=== PATIENT | female | born 1965 | race Caucasian/White ===

== ENCOUNTER → 2016-12-15 | Outpatient (CLI) | payer BC ==
[~2016-12-15] MED LIST: B-COTAB18; CALCTAB5 PO; CHOL100010 PO; CODCAP4; MISCCAP80; MULT-506 PO
--- NOTE | 2016-12-15 14:57 | MAMMOGRAPHY REPORT ---
BILATERAL DIGITAL SCREENING MAMMOGRAM TOMOSYNTHESIS WITH CAD: 12/15/2016 CLINICAL HISTORY: Routine screening. Patient has no complaints. TECHNIQUE: Breast tomosynthesis in addition to standard 2D mammography was performed. Current study was also evaluated with a Computer Aided Detection (CAD) system. COMPARISON: Comparison is made to exams dated: 12/12/2015 mammogram, 11/09/2014 mammogram, 11/08/2013 mammogram, 10/26/2012 mammogram, 10/21/2011 mammogram, and 10/16/2010 mammogram - [facility]. BREAST COMPOSITION: The tissue of both breasts is extremely dense, which lowers the sensitivity of m ammography. FINDINGS: The parenchymal pattern is unchanged. No developing mass, architectural distortion or clus ter of suspicious microcalcifications is seen in either breast. IMPRESSION: ACR BI-RADS CATEGORY 2: BENIGN There is no mammographic evidence of malignancy. A 1 year screening mammogram is recommended. The pa tient will receive written notification of the results. Approximately 10% of breast cancers are not detected with mammography. A negative mammographic report should not delay biopsy if a clinically suggestive mass is present. Alisa Pnen M.D. ay/:12/15/2016 14:12:04 Sales Product Manager: Gala DUNHAM(Margarita)(M), [facility] letter sent: Normal 1/2 BI-RADS Code: ACR BI-RADS Category 2: Benign
== END | disposition home or self-care (01) ==
LOC: C.MAMM 13:16
PROVIDERS: ATTEND Obstetrics & Gynecology
DX: Z12.31 Encounter for screening mammogram for malignant neoplasm of breast (principal)

== ENCOUNTER → 2016-12-31 | Outpatient (CLI) | payer BC | END | disposition home or self-care (01) | LOC: C.PAPS 10:41 | PROVIDERS: ATTEND Obstetrics & Gynecology | DX: Z01.419 Encounter for gynecological examination (general) (routine) without abnormal findings (principal) ==

== ENCOUNTER 2019-09-23 08:56 | Observation (INO) ==
--- NOTE | 2019-09-06 16:30 | PAT Medication Instructions ---
Medication Instructions Date of Service September 06, 2019 Home Medications calcium carbonate [Calcium 600] 600 mg PO BID cholecalciferol (vitamin D3) 1,000 unit PO QAM cod liver oil 1 cap PO TID STOP taking 2 weeks before surgery If surgery is within 2 weeks, stop taking as soon as possible. cod liver oil 1 cap PO TID DO NOT take the morning of surgery calcium carbonate [Calcium 600] 600 mg PO BID cholecalciferol (vitamin D3) 1,000 unit PO QAM Other Notes If you have any questions please call us at [phone] or [phone] or [phone] or [phone]
--- NOTE | 2019-09-07 09:21 | Anesthesiology Consultation ---
Date of Service September 07, 2019 Assessment & Plan (1) Encounter for pre-operative examination: Pt reports she always wakes up "freezing cold" after surgeries. Also has had significant nausea 2/2 pain medications (opioids) and has had relief when Zofran given prior to pain meds. S/P knee scope 07/07/19 -- LMA #4, smooth induction, LMA atraumatic, no comp lications. COVID Status: As of 09/06 assessment, patient denies travel to endemic area, known exposure/sick contacts, or symptoms of COVID19. Patient instructed that they and their household members must follow strict social distancing guidelines, wear a mask in public and avoid travel for 14 days prior to surgery. Preoperative COVID19 testing to be completed prior to surgery per surgeon's arrangements. Patient made aware to self-isolate as much as possible between COVID testing and surgery. Chart Review Chart Review: Acceptable Risk for Surgery and Patient seen in Pre Admission Testing Teaching & Discussion Instructed NPO after midnight before surgery, except medications with 15 cc of water. Medication instructions provided according to the PAT guidelines. History Surgery Operation Date: 09/23/19 13:20 Proposed Procedures p Left Total Knee Arthroplasty - Semaj Muro, Height/Weight Height: 4 ft 11 in Weight: 46.6 kg Allergies Allergy/AdvReac Type Severity Reaction Status Date / Time Sulfa (Sulfonamide Allergy Unknown RASH Verified 09/01/19 10:47 Antibiotics) Medications Home Medications Medication Instructions Recorded Confirmed Last Taken calcium carbonate [Calcium 600] 600 mg PO BID 07/04/19 09/01/19 07/03/19 cholecalciferol (vitamin D3) 1,000 unit PO QAM 07/04/19 09/01/19 07/03/19 [Vitamin D3] cod liver oil 1 cap PO TID 07/04/19 09/01/19 07/03/19 Past Medical History Medical History (Updated 09/07/19 @ 15:13 by Forrest Mao) Degenerative disc disease Osteoarthritis Postoperative nausea Spinal stenosis Exercise / Class Metabolic Activity 1 > 8 Run/Swim/Ski/Tennis (limited currently by knee pain but generally very active) Past Surgical History Surgical History History of gynecologic surgery laser ablation of cervix History of loop electrical excision procedure (LEEP) History of meniscectomy of left knee History of open reduction and internal fixation (ORIF) procedure right hand pinky finger---hardware removed History of vaginal hysterectomy History of wisdom tooth extraction Hx of colonoscopy Hx of reconstruction of anterior cruciate ligament tear left knee Past Anesthesia History No Hx of Anesthesia Complications (other than nausea) and No Family Hx of Anest hesia Complications History of PONV History of PONV and Hx of Motion Sickness Social History Smoking Status: Never smoker Do You Dip or Chew Tobacco: No Hx Alcohol Use: No Hx Substance Use: No substance use type: does not use Review of Systems Pt denies any recent chest pain, shortness of breath, palpitations, cough, fever, URI, or uncontrolled acid reflux. Physical Exam Vital Signs BP: 128/77 P: 66bpm SPO2: 99% RA T: 98.3 F R: 16 ENMT Mouth: + dental restorations (few crowns on molars) and + small oral opening; no chipped teeth and no loose teeth Thyromental Distance: < 3.5 Finger Breadths (3) Mallampati Class: II Neck normal visual inspection; neck extension not limited Respiratory normal respiratory effort Auscultation: lungs clear to auscultation bilaterally Cardiovascular Rate/Rhythm: regular rate and regular rhythm Heart Sounds: no murmur Vessels: no carotid bruit Extremities: no edema Testing Laboratory Results 09/07/19 09:44 PT 10.3 Seconds (9.0-12.0) 09/07/19 09:44 INR 1.0 (0.9-1.1) 09/07/19 09:44 APTT 25.9 Seconds (21.0-31.0) 09/07/19 09:44 Blood Type A Positive 09/07/19 09:44 Antibody Screen NEGATIVE 09/07/19 09:44 08/12/19 WBC: 10.74 H/H: 13.9/41.7 PLATELETS: 278 Electrocardiogram Date: 06/28/19 Findings: + SB @ (58bpm) Cannot r/o septal infarct. Compared to EKG from 10/27/98, questionable change in initial forces of septal leads. Chest X-Ray Date: 09/07/19 Findings: + NAD
--- NOTE | 2019-09-07 10:20 | XRay Report ---
XR chest Pre-admission PA/Lat HISTORY: Preop. COMPARISON: None. FINDINGS: The lungs are clear. Cardiac silhouette is normal in size. No pleural effusions. No pneumot horax. IMPRESSION: No acute process. ACT 112: Negative or not required by law. Electronically signed by: Mauro Hernandez M.D. 09/07/2019 10:19 AM
[2019-09-07 10:52] LABS: BUN Creatinine Ratio 17.9 (10-20); Calcium 9.3 mg/dl (8.5-10.1); Creatinine Clr Calc Pharmacy 62.1 ml/min; Est GFR (African American) 112.8; Est GFR (Non-African American) 97.3
[2019-09-07 11:00] LABS: Partial Thromboplastin Ratio 0.9; Partial Thromboplastin Time 25.9 Seconds (21.0-31.0); Prothrombin Time 10.3 Seconds (9.0-12.0)
--- NOTE | 2019-09-22 06:55 | History & Physical Report ---
Date of Service September 22, 2019 Assessment & Plan (1) Osteoarthritis of left knee: We will proceed with a left total knee arthroplasty. Postoperatively she will be placed on aspirin for DVT prophylaxis and kept overnight in the hospital for postoperative medical management. She plans to do back to life physical therapy as an outpatient upon discharge. Present on Admission?: Yes History of Present Illness Chief Complaint: Primary osteoarthritis of the left knee Primary Care Provider: Emma Peng MD Belinda is a pleasant 54-year-old female who has been having chronic increasing left knee pain. She has always had a little bit of left knee pain. She has had multiple procedures to her left knee in the past including ACL reconstruction. She then injured her knee more recently and was having lateral-sided knee pain. I diagnosed her with severe chondromalacia and a lateral meniscus tear. She underwent a knee arthroscopy about 3 months ago. There was extensive grade IV chondromalacia throughout the knee, most prominently over the distal medial femoral condyle. Unfortunately, she has not done well since the surgery. She continues to have a lot of knee pain. She has trouble regaining that full range of motion. We have tried a Medrol Dosepak and physical therapy after the procedure. She is still really struggling with her knee. She is unable to go up and down stairs. She is unable to live with the knee the way it is. At this point, she has elected to proceed with a left total knee arthroplasty. Allergies Allergy/AdvReac Type Severity Reaction Status Date / Time Sulfa (Sulfonamide Allergy Unknown RASH Verified 09/01/19 10:47 Antibiotics) Home Medications Home Medications Medication Instructions Recorded Confirmed Type calcium carbonate [Calcium 600] 600 mg PO BID 07/04/19 09/01/19 History cholecalciferol (vitamin D3) 1,000 unit PO QAM 07/04/19 09/01/19 History [Vitamin D3] cod liver oil 1 cap PO TID 07/04/19 09/01/19 History Past Med/Surg History Medical History Degenerative disc disease Osteoarthritis Spinal stenosis Surgical History History of gynecologic surgery laser ablation of cervix History of loop electrical excision procedure (LEEP) History of meniscectomy of left knee History of open reduction and internal fixation (ORIF) procedure right hand pinky finger---hardware removed History of vaginal hysterectomy History of wisdom tooth extraction Hx of colonoscopy Hx of reconstruction of anterior cruciate ligament tear left knee Postoperative nausea Family History Grandmother (Maternal) Alcoholism Father Alzheimer disease Grandfather (Maternal) Diabetes Bipolar disorder Pure hypercholesterolemia Hypertension Family history of diabetes mellitus Mother Diabetes Depression Pure hypercholesterolemia Breast cancer Cancer liver and ? pancreatic Hypertension Sister No problems noted. Brother No problems noted. Daughter No problems noted. Son No problems noted. Other No family history of adverse response to anesthesia Denies family history of Ovarian cancer Prostate cancer Myocardial infarction Colorectal cancer Social History Smoking Status: Never smoker Second Hand Exposure: Yes (mom smoked); Do You Dip or Chew Tobacco: No; Hx Alcohol Use: No Hx Substance Use: No Preferred Language: Romansh Communication Ability: Effective Visual Impairment: No Limitations Hearing Ability: Normal Collection Systems Technician Required: No Beliefs That Will Affect Care: Mu-Ism Mu-Ism Beliefs: HINDU marital status: Current Living Situation: Spouse current occupational status: retired Other Information That Helps Us Care for You: No Feels Safe at Home: Yes Childhood Exposure to Second-Hand Smoke: No Dental Care, Regularly: Yes Physical Activity Frequency: 5-6 Times per Week Physical Activity Frequency Comment: regularly Seatbelt Use: always Sunscreen Use: Yes Review of Systems Review of Systems: All systems reviewed & are unremarkable except as noted in HPI & below Physical Exam Constitutional: WD/WN, vitals as above Eyes: PERRL, conjunctivae normal, anicteric sclerae ENMT: external ear and nose normal, oropharynx normal Neck: trachea midline, no thyromegaly Respiratory: normal respiratory effort Cardiovascular: RRR, no murmur, no edema Gastrointestinal (Abdomen): normal bowel sounds, soft, nontender, no hepatosplenomegaly Musculoskeletal: On physical examination of the left knee there is a trace effusion. There is near full range of motion and no evidence of instability. There is significant tenderness palpation along the medial and lateral joint lines and over the distal femoral condyles. Psychiatric: A+Ox3, euthymic affect Results & Data Results & Data ([facility]) Diagnostic Findings Radiographs of the knees show signs of previous ACL reconstruction. There is minimal arthritis on the x-rays. Arthroscopic pictures of the left knee do show advanced osteoarthritis with exposed bone over both the medial and lateral femoral condyles. PG Care Time/CCT Total # of Minutes Spent Total Time Spent with Patient: Total time spent is greater than 50% in coordination of care (as documented) at patient's floor/unit and/or counseling patient: Coding Level of Care Code 05095 Initial Inpt Care Lvl 3 Diagnoses Osteoarthritis of left knee M17.12
[~2019-09-23 08:56] MED LIST changes: +ACETAMINOPHEN 500 MG TAB PO SCH; -B-COTAB18; +BUPIVACAINE 0.5 % 5 MG/1 ML PF 10ML VIAL ONE; -CALCTAB5 PO; +CEFAZOLIN 1000MG 1,000 MG/7.5 ML SYR IV SCH; -CHOL100010 PO; -CODCAP4; +FAMOTIDINE 20 MG TAB PO SCH; +GABAPENTIN 600 MG DOSE PO SCH; +LR 15ML/HR IV SCH; +LR 60ML/HR IV SCH; -MISCCAP80; -MULT-506 PO; +ROPIVACAINE 0.5% 5 MG/ML 30 ML VIAL ONE; +ROPIVACAINE 0.5% HCL/PF 150 MG, BUPIVACAINE 0.5% MPF 30 ML, EPINEPHrine 30MG/30ML (OR U... INSTIL SCH; +TRANEXAMIC ACID 1,000 MG **IV Intra-op IV SCH; +TRANEXAMIC ACID 1,000 MG **IV Pre-op IV SCH; +dexAMETHasone 4 MG TAB PO SCH
[2019-09-23] MEDS ORDERED: ePHEDrine sulfate 50 MG/ML AMP IV PRN (09:30)
[2019-09-23] MEDS ORDERED: ATROPINE SULFATE 0.1 MG/ML 10ML SYR IV PRN (09:30)
[2019-09-23] MEDS ORDERED: ONDANSETRON INJ 2 MG/ML 2 ML VIAL IV PRN ×2 (09:30→14:30)
[2019-09-23] MEDS ORDERED: MEPERIDINE HCL 25 MG/ML CARP/VIAL IV PRN (09:30)
[2019-09-23] MEDS ORDERED: fentaNYL citrate 100 MCG/2 ML VIAL IV PRN (09:30)
[2019-09-23] MEDS ORDERED: LABETALOL HCL IV 5 MG/ML 20ML IV PRN (09:30)
[2019-09-23] MEDS ORDERED: HYDROmorphone INJ 1 MG/ML SYRINGE IV PRN (09:30)
--- NOTE | 2019-09-23 09:36 | History & Physical Bridge Note ---
Date of Service September 23, 2019 History & Physical Bridge Note I have examined the patient, reviewed the History & Physical and in the interval since the performance of the History & Physical I have noted the following changes of clinical significance: no changes noted
[2019-09-23] MEDS ORDERED: MIDAZOLAM HCL 1 MG/ML 2ML VIAL ONE (10:14)
[2019-09-23] MEDS ORDERED: fentaNYL citrate 100 MCG/2 ML VIAL ONE (10:14)
[2019-09-23] MEDS ORDERED: ORTHO JOINT ANESTHETIC ONE (10:44)
[2019-09-23] MEDS ORDERED: ePHEDrine sulfate 50 MG/ML SYR ONE (11:32)
[2019-09-23] MEDS ORDERED: PROPOFOL IV EMULSION 10 MG/ML 20 ML VIAL IV ONE (11:32)
[2019-09-23] MEDS ORDERED: LIDOCAINE HCL 2% 2 ML VIAL/AMP(20MG/ML) INFIL ONE (11:32)
--- NOTE | 2019-09-23 12:44 | Operative Report ---
PG Post Operative Report Pre & Post Diagnosis Operation Date: 09/23/19 11:20 Pre-Op Diagnosis: Left Knee Degenerative Joint Disease Post-Op Diagnosis: Left Knee Degenerative Joint Disease I identified the patient and participated in the time-out.: Yes Procedure Operation Date: 09/23/19 11:20 Actual Procedures p Left Total Knee Arthroplasty(Left) - Semaj Muro DO Surgeon Semaj Muro DO System Support Analyst Semaj Ennis PAC Estimated Blood Loss 10 Findings Consistent with Post-Op Diagnosis Specimens Left femoral and tibial bone Complications none Disposition Disposition: Recovery Room Indications Belinda is a pleasant 54-year-old female who is been dealing with chronic left knee pain. She has had multiple procedures on her knee in the past. She recently had a knee arthroscopy about 3 months ago. That showed advanced arthritis. Her pain was not improving. After failing extensive conservative treatment, she elected to proceed with a left total knee arthroplasty. Description of Procedure Implants used: I used a Jere Persona total knee arthroplasty system with a size 6 standard femur, D tibia, 29 patella, and a size 13 medial congruent polyethylene bearing. All components were cemented in place with Palacos G cement. Belinda arrived [facility] for the above procedure. She was seen in the preoperative holding area and the operative extremity was identified and signed. She was given a preoperative antibiotic, TXA, a spinal anesthetic and an adductor nerve block. She was taken back to the operating room and laid on the table in supine position. She was given basic sedation. The operative knee was then prepped and draped in sterile fashion. A timeout was done, and the patient and the operative extremity was properly identified. A midline incision was made directly over the patella. Dissection was taken down to the extensor mechanism. A subvastus arthrotomy was used. The medial retinaculum was released and the fat pad was mostly excised. The knee was flexed and the ACL, PCL, and meniscus were removed. A drill was sent down the center of the femoral canal followed by an intramedullary lucina. Off that lucina a distal femoral cutting block was placed. 9 mm was resected off the distal femur at 5 of valgus. A posterior referencing AP sizing guide was then placed on the distal femur. The femur measured to be a size 6. 2 drill holes were placed in 3 of external rotation. A 4-in-1 cutting block was then impacted into place. Anterior, posterior, and chamfer cuts were then made. The proximal tibia was then exposed. An external tibial alignment guide was placed. A tibial cut guide was then anchored in place to resect 2 mm off the low medial side. The proximal tibia was then resected. The tibia measured to be a size D. The tibial plate was then placed in the appropriate rotation and the tibia was drilled and punched. The posterior aspect of the knee was then opened up and any additional meniscus fragments and osteophytes were removed. Trial components were then placed. I used a size 13 medial congruent polyethylene insert. The knee was brought through a full range of motion and felt to be stable. The patella was then everted and 8 mm was resected off the posterior aspect of the patella. The patella measured to be a size 29. 3 peg holes were then drilled. A trial patella was placed. The knee was once again brought through a full range of motion and felt to be stable. Trial components were then removed. The surrounding soft tissues were injected with 100 cc of an orthopedic pain control cocktail. All components were then cemented into place with Palacos G cement. The final polyethylene insert was then snapped into place and the anterior bar was locked. Once cement was dry the tourniquet was deflated. Hemostasis was obtained. A dilute betadyne lavage was then done for 3 minutes. The joint was then irrigated with normal saline solution. The subvastus arthrotomy was then closed with #1 Vicryl suture. The skin was closed with 2-0 Vicryl, 3-0V lock suture, and tony. A soft compressive dressing was placed. She was then transferred to a hospital bed and taken to the postanesthesia care unit in stable condition. She tolerated the procedure well. Semaj Ennis PA-C, was present for the entire procedure. He was critical for patient positioning, prepping, draping, retraction exposure, wound closure and application of sterile dressing. I attest to the content of the Intraoperative Record and any orders documented therein. Any exceptions are noted below.
--- NOTE | 2019-09-23 13:38 | XRay Report ---
XR knee LT 1 or 2V routine CLINICAL HISTORY: Surgical Post Op COMPARISON: None. DISCUSSION: Anatomic alignment post total left knee arthroplasty. Could contact between prosthetic an d underlying bone. There is a surgical staple traversing the proximal tibial metaphysis. Expected sof t tissue postoperative change IMPRESSION: Anatomic alignment post total left knee arthroplasty. ACT 112: Negative or not required by law. The above report was generated using voice recognition software. It may contain grammatical, syntax or spelling errors. Electronically signed by: Trevor Kim M.D. 09/23/2019 1:36 PM
--- NOTE | 2019-09-23 13:47 | Anesthesiology Progress Note ---
Date of Service September 23, 2019 Anesthesia Post Procedure Vital Signs Vital Signs: Temp Pulse Pulse Resp BP Pulse Ox 09/23/19 13:30 36.5 C 71 18 96/57 L 97 09/23/19 13:20 72 17 100/56 L 98 09/23/19 13:10 75 15 100/61 98 09/23/19 13:07 36.3 C L 78 16 103/60 97 09/23/19 10:31 76 143/88 H 98 09/23/19 09:46 36.5 C 72 18 142/80 H 99 Pain Intensity Anterior Head: Pain Intensity: 2 Left Knee: Pain Intensity: 1 Transfer of Care Handoff Completed per policy Notes Mental Status: alert / awake / arousable Patient Amnestic to Procedure: Yes Nausea / Vomiting: adequately controlled Pain: adequately controlled Airway Patency, RR, SpO2: stable & adequate BP & HR: stable & adequate Hydration State: stable & adequate Neuraxial Anesthesia: was administered and sensory block is resolving Anesthetic Complications: no major complications apparent and Pt Satisfied with anesthetic care
[2019-09-23] MEDS ORDERED: METOCLOPRAMIDE HCL INJ 5 MG/ML 2 ML VIAL IV PRN (14:30)
[2019-09-23] MEDS ORDERED: bisacodyL 10 MG SUPP PR PRN (14:30)
[2019-09-23] MEDS ORDERED: MAGNESIUM HYDROXIDE SUSP 30 ML UDC PO PRN (14:30)
[2019-09-23] MEDS ORDERED: NALOXONE HCL 0.4 MG/1 ML VIAL/CARP IV PRN (14:30)
[2019-09-23] MEDS ORDERED: HYDROmorphone INJ 0.5 MG/0.5 ML SYR IV PRN (14:30)
[2019-09-23] MEDS ORDERED: OXYCODONE HCL IR 5 MG TAB (IMMEDIATE RELEASE) PO PRN (14:30)
[2019-09-23] MEDS: SODIUM CHLORIDE 0.9% 1000ML 1,000 ML IV SCH ×2 (15:11→23:40)
[2019-09-23] MEDS: KETOROLAC 30 MG/ML VIAL IV SCH ×2 (15:12→21:22)
[2019-09-23] MEDS: ACETAMINOPHEN 500 MG TAB PO SCH ×2 (15:12→22:47)
[2019-09-23] MEDS: CEFAZOLIN 2000MG 2,000 MG/15 ML SYR IV SCH (18:20)
[2019-09-23] MEDS ORDERED: SENNA 8.6 MG TAB PO SCH (21:00)
[2019-09-23] MEDS: DOCUSATE SODIUM 100 MG CAP PO SCH (21:21)
[2019-09-23] MEDS: ASPIRIN 81 MG ECTAB PO SCH (21:22)
[2019-09-24] MEDS: KETOROLAC 30 MG/ML VIAL IV SCH ×2 (03:17→08:36)
[2019-09-24] MEDS: CEFAZOLIN 2000MG 2,000 MG/15 ML SYR IV SCH (03:17)
[2019-09-24] MEDS: ACETAMINOPHEN 500 MG TAB PO SCH ×2 (03:17→13:02)
[2019-09-24 05:47] LABS: Hematocrit (blood only) 32.6 % (37-47); Hemoglobin 11.5 g/dL (12.0-16.0); Mean Corpuscular Hemoglobin 31.8 pg (25-34); Mean Corpuscular Hgb Conc 35.3 g/dL (32-36); Mean Corpuscular Volume 90.1 fL (80-100); Mean Platelet Volume 9.7 fL (7.4-10.4); Platelet Count 168 K/uL (130-400); RDW Coefficient of Variation 12.9 % (11.5-14.5); RDW Standard Deviation 42.8 fL (36.4-46.3); Red Blood Count 3.62 M/uL (4.2-5.4); White Blood Count 13.63 K/uL (4.8-10.8)
[2019-09-24 06:06] LABS: BUN Creatinine Ratio 13.6 (10-20); Calcium 8.2 mg/dl (8.5-10.1); Creatinine Clr Calc Pharmacy 77.9 ml/min; Est GFR (African American) 121.5; Est GFR (Non-African American) 104.9; Potassium 3.9 mmol/L (3.5-5.1)
--- NOTE | 2019-09-24 07:54 | Orthopedic Progress Note ---
Date of Service September 24, 2019 Assessment & Plan (1) Status post left partial knee replacement: Overall she is doing very well. She is not having much pain in the left knee. She will be seen by physical therapy this morning for ambulation and range of motion exercises. She can be discharged home later today. She will follow-up with orthopedics in 2 weeks. Present on Admission?: Yes Subjective Belinda was seen and examined at bedside this morning. Overall she is doing very well. She is not having much pain in the left knee. She has been up and ambulating to the bathroom. She has no complaints. Physical Exam Musculoskeletal: On physical examination of the left knee, the dressing is clean and dry. Her legs out in full extension. She has active dorsiflexion and plantarflexion of her left ankle. Results & Data ([facility]) Vital Signs (Past 12 Hours) Vital Signs Temp Pulse Resp BP Pulse Ox 09/24/19 07:21 36.5 C 62 16 123/74 100 09/24/19 06:10 92/55 L 09/24/19 03:31 36.6 C 63 16 93/51 L 97 09/23/19 23:40 36.7 C 73 16 93/52 L 96 Laboratory Results H & H 09/24/19 Range/Units 05:25 Hgb 11.5 L (12.0-16.0) g/dL Hct 32.6 L (37-47) % Coagulation 09/07/19 Range/Units 09:44 INR 1.0 (0.9-1.1) Diagnostic Findings Postoperative x-rays of the left knee show the prosthesis to be in anatomic alignment without any evidence of fracture, dislocation, or loosening. PG Care Time/CCT Total # of Minutes Spent Total Time Spent with Patient: Total time spent is greater than 50% in coordination of care (as documented) at patient's floor/unit and/or counseling patient: Coding Level of Care Code None Diagnoses Status post left partial knee replacement Z96.652
--- NOTE | 2019-09-24 07:55 | Discharge Summary ---
Date of Service September 24, 2019 Admission HPI Per Admitting Provider Belinda is a pleasant 54-year-old female who has been having chronic increasing left knee pain. She has always had a little bit of left knee pain. She has had multiple procedures to her left knee in the past including ACL reconstruction. She then injured her knee more recently and was having lateral-sided knee pain. I diagnosed her with severe chondromalacia and a lateral meniscus tear. She underwent a knee arthroscopy about 3 months ago. There was extensive grade IV chondromalacia throughout the knee, most prominently over the distal medial femoral condyle. Unfortunately, she has not done well since the surgery. She continues to have a lot of knee pain. She has trouble regaining that full range of motion. We have tried a Medrol Dosepak and physical therapy after the procedure. She is still really struggling with her knee. She is unable to go up and down stairs. She is unable to live with the knee the way it is. At this point, she has elected to proceed with a left total knee arthroplasty. Principal Diagnosis Left knee replacement Discharge Data Allergies Allergy/AdvReac Type Severity Reaction Status Date / Time Sulfa (Sulfonamide Allergy Unknown RASH Verified 09/23/19 09:42 Antibiotics) Consultations 09/23/19 13:59 Consult Case Management - Discharge Planning Routine Procedures Performed Operation Date: 09/23/19 11:20 Actual Procedures p Left Total Knee Arthroplasty(Left) - Semaj Muro DO Ordered Studies 09/23/19 09:30 US - OR guided needle placemen Routine Hospital Course (1) Status post left partial knee replacement: On September 23, 2019 Belinda arrived at [facility] and underwent a left knee replacement without complication. She had a spinal anesthetic. Postoperatively she was started on aspirin for DVT prophylaxis and transferred to the general orthopedic floors. Her hospital course was uneventful. On postop day #1 her H&H was stable and her pain was well controlled. She was able to participate well with physical therapy doing ambulation and range of motion exercises. She was then discharged home. She will follow-up with orthopedics in 2 weeks. Total Time Total Time Spent Total Time Spent (In Minutes): 20 Discharge Plan Discharge Items Patient Disposition: Home - Home Health Services Reason For Visit: Left Knee Degenerative Joint Disease Discharge Diagnosis: Left knee replacement Activity: As commented below Non-emergency contact: Surgeon Call non-emergency contact if: your wound has increased redness and your wound has increased drainage Follow-up/Referrals: Emma Peng MD [Primary Care Provider] - Diet: Regular Addtl Attending Provider Instructions: Activity and Therapy Recommendations: * If you are using [facility] then therapy will be provided at your home until they feel you have accomplished all of your goals. * If you are using [facility] then Physical Therapy will be provided until they feel you are ready to start Outpatient Physical Therapy. * If you are not using home therapy then Outpatient Physical Therapy should start about 3-5 days from your day of surgery. Therapy will last about 6-10 weeks * It is important not to put a pillow under your knee when you are relaxing or sleeping. It is just as important to make sure you are getting your knee perfectly straight as it is to regain your knee bend. * You were shown a series of exercises in the hospital. Do these exercises three times each day including the exercises you were shown in physical therapy. * Get up and walk several times each day. For the first four weeks, try not to stand or walk for more than one hour at a time. If you do stand or walk for more than one hour, you will not hurt anything, but your leg will likely swell. * As you feel comfortable, you may change from the walker or crutches to a cane and then to independent walking. Medications: * Narcotic You will likely be sent home from the hospital with a prescription for the narcotic pain medication that worked best throughout your stay. * Aspirin Most patients will be required to take Aspirin 81mg twice a day for 6 weeks after surgery. This is obtained [id number] and a prescription is not necessary. * Other medications may be prescribed for specific circumstances. If you have any questions, please call the office at . * Resume previous home medications unless otherwise instructed TEDs/Elastic Stockings: The white elastic stockings help limit swelling and prevent blood clots from forming in your legs.~ The more you wear them, the more they work. Wear them for six weeks. Dressing Care: Leave the Silverlon dressing on for 7 days. After 7 days you may remove the dressing. If the incision is not draining then you may leave the tony open to air. If there is a little bit of drainage or if the tony are getting stuck on your clothing then cover the incision with a dry dressing. The tony will be removed at your 2 week follow-up appointment. Showering: You may shower immediately after the surgery with the Silverlon dressing in place. Do not scrub or soak the dressing. After 7 days you may remove dressing and shower with the tony exposed. Let the soapy shower water run over the tony and pat them dry. Do not scrub or soak the incision. Things To Watch For: * Drainage from the incision site that occurs more than one week after your surgery. * Increased redness at the incision site. * Fever above 102 degrees Fahrenheit. * Unusual chest pain or shortness of breath. * Call [facility] at with any of the above problems Follow-Up Visit: Follow-up with Dr. Muro's PA (Semaj Ennis) 2-3 weeks after your day of surgery. He will remove your tony and answer any questions. If you have any additional questions or concerns, Dr Muro is usually in the office at the same time and will be available An appointment was probably scheduled when you signed-up for surgery in the office. If you have any questions call Office Instructions: More detailed instructions as well as Frequently Asked Questions were provided in a folder by our office when you signed-up for surgery. Please review these instructions when you get home. If you have any further questions or concerns, please feel free to call the office at [phone] Pending Studies at Discharge: No Stand-Alone Forms: My [facility], Smoking Cessation Medications and DC Order Prescriptions: New oxycodone 5 mg Tablet 5 mg PO Q4H PRN (Reason: pain) Qty: 30 RF: 0 acetaminophen 500 mg Tablet 1,000 mg PO Q8 Qty: 60 RF: 0 ondansetron HCl [Zofran] 4 mg tablet 4 mg PO Q6H PRN (Reason: nausea and vomiting) Qty: 20 RF: 0 aspirin 81 mg Tablet,Delayed Release (Dr/Ec) 81 mg PO BID 42 Days Qty: 0 RF: 0 Continued cod liver oil Capsule 1 cap PO TID RF: 0 calcium carbonate [Calcium 600] 600 mg calcium (1,500 mg) Tablet 600 mg PO BID RF: 0 cholecalciferol (vitamin D3) [Vitamin D3] 25 mcg (1,000 unit) Tablet 1,000 unit PO QAM RF: 0 Discharge Orders: Discharge Order (Routine); Ordered 09/24/19 Ordered By: Semaj Muro Admission Data Admit Date/Time: 09/23/19 13:06 Attending Provider: Semaj Muro Admit Provider: Semaj Muro Primary Care Provider: Emma Peng Coding Level of Care Code D/C Day Management <30 mins Diagnoses Status post left partial knee replacement Z96.652
[2019-09-24] MEDS ORDERED: dexAMETHasone 4 MG TAB PO SCH (08:00)
[2019-09-24] MEDS: ASPIRIN 81 MG ECTAB PO SCH (08:36)
[2019-09-24] MEDS: DOCUSATE SODIUM 100 MG CAP PO SCH (08:36)
[2019-09-24] MEDS ORDERED: MULTIVITAMIN TAB PO SCH (09:00)
[2019-09-24] MEDS ORDERED: ONDANSETRON 4 MG OD TAB PO STA (12:53)
== END 2019-09-24 14:13 | disposition home health service (06) ==
LOC: ASU 08:56 → 3E 08:56

== ENCOUNTER 2020-01-06 13:32 | Observation (INO) ==
--- NOTE | 2020-01-05 08:22 | Anesthesiology Consultation ---
Date of Service January 05, 2020 Assessment & Plan (1) Encounter for pre-operative examination: - Per assessment on 01/04: Travel screen negative. No known COVID-19 positive contacts or current COVID-19 related symptoms. Preop COVID test done 01/01 which was negative. - S/P Left knee manipulation: 11/17/19: MAC sedation at [facility] - S/P Left TKA: 09/23/19: SAB x 1 attempt at L3/L4 + PNB at [facility] - Anesthesia concerns/reaction: Per records, patient reports she always wakes up "freezing cold" after surgeries. Also has had significant nausea 2/2 pain medications (opioids) and has had relief when Zofran given prior to pain meds. Chart Review Chart Review: Acceptable Risk for Surgery and Patient NOT seen in Pre Admission Testing History Surgery Operation Date: 01/06/20 07:00 Proposed Procedures p Left Debridement, Revision Poly Total Knee, Possible Revision Total Arthroplasty - Semaj Muro, Height/Weight Height: 4 ft 11 in Weight: 48.988 kg Allergies Allergy/AdvReac Type Severity Reaction Status Date / Time Sulfa (Sulfonamide Allergy Mild RASH Verified 01/05/20 07:39 Antibiotics) Medications Home Medications Medication Instructions Recorded Confirmed Last Taken No Known Home Medications 01/05/20 01/05/20 Unknown Past Medical History Medical History Degenerative disc disease Osteoarthritis Spinal stenosis Past Family History Family History Grandmother (Maternal) Alcoholism Father Alzheimer disease Grandfather (Maternal) Diabetes Bipolar disorder Pure hypercholesterolemia Hypertension Family history of diabetes mellitus Mother Diabetes Depression Pure hypercholesterolemia Breast cancer Cancer liver and ? pancreatic Hypertension Sister No problems noted. Brother No problems noted. Daughter No problems noted. Son No problems noted. Other No family history of adverse response to anesthesia Denies family history of Ovarian cancer Prostate cancer Myocardial infarction Colorectal cancer Past Surgical History Surgical History History of gynecologic surgery laser ablation of cervix History of loop electrical excision procedure (LEEP) History of open reduction and internal fixation (ORIF) procedure right hand pinky finger---hardware removed History of total knee replacement Left TKA: 09/23/19: SAB x 1 attempt at L3/L4 + PNB at [facility] History of vaginal hysterectomy History of wisdom tooth extraction Hx of colonoscopy Hx of reconstruction of anterior cruciate ligament tear left knee Postoperative nausea S/P surgical manipulation of knee joint LEFT Social History Smoking Status: Never smoker Do You Dip or Chew Tobacco: No Hx Alcohol Use: No Hx Substance Use: No substance use type: does not use Testing Laboratory Results 12/29/19 WBC 7.08 H/H 14.5/42.9 PLATELETS 289 SODIUM 139 POTASSIUM 3.8 CHLORIDE 107 CO2 28 BUN 9 CREATININE 0.66 GLUCOSE 94 PT 10.7 PTT 27.3 INR 1.0 TYPE AND SCREEN A+Ab- Electrocardiogram Date: 06/28/19 SB @ (58bpm). Cannot r/o septal infarct. Compared to EKG from 10/27/98, questionable change in initial forces of septal leads per sort manager review. Excellent functional status per assessment at [facility] 08/2019 (seen by Forrest Mao, PAC). Chest X-Ray Date: 09/07/19 Findings: + NAD
--- NOTE | 2020-01-05 11:36 | History & Physical Report ---
Date of Service January 05, 2020 Assessment & Plan (1) Arthrofibrosis of knee joint: We will proceed with a revision left knee replacement. Will do a scar tissue removal and an exchange of the polyethylene insert. Postoperatively she will be seen by physical therapy. She may be kept overnight at the hospital. She will likely then be discharged home on oral pain medications. She is already scheduled with outpatient physical therapy at [place] in [place]. 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 She has had multiple procedures on her left knee. About a year ago she began having more significant left knee pain. I treated her conservatively and then got an MRI of her knee. The MRI showed some chondromalacia and a displaced lateral meniscus tear. She was having trouble ambulating. After failing conservative treatment, she underwent a left knee arthroscopy in June 2019. During the ar throscopy there was more arthritis than I was expecting. Postoperatively she did not do well. She struggled to regain her range of motion. She was having constant pain and constantly limping on the left knee. After discussions in the office, she elected to proceed with a left total knee arthroplasty in September 2019. Unfortunately she struggled to regain her range of motion after that as well. She underwent a manipulation under anesthesia 6 weeks after the knee replacement. I was able to get about 130 degrees of flexion but I was unable to get full extension during the manipulation. She continue to work on it over the last 6 weeks but her range of motion is not improving. Her range of motion was about 10 to 90 degrees. She is having difficulty living with the knee the way it is. I did an infection work-up and all infection markers were negative. After discussions in the office, I think it is reasonable to proceed with a scar tissue removal and a downsize of the polyethylene implant. She understands the risks, benefits, and alternatives to the procedure and has elected to proceed. Allergies Allergy/AdvReac Type Severity Reaction Status Date / Time Sulfa (Sulfonamide Allergy Mild RASH Verified 01/05/20 07:39 Antibiotics) Home Medications Medication Instructions Recorded Confirmed Type No Known Home Medications 01/05/20 01/05/20 History Past Med/Surg History Medical History Degenerative disc disease Osteoarthritis Spinal stenosis Surgical History History of gynecologic surgery laser ablation of cervix History of loop electrical excision procedure (LEEP) History of open reduction and internal fixation (ORIF) procedure right hand pinky finger---hardware removed History of total knee replacement Left TKA: 09/23/19: SAB x 1 attempt at L3/L4 + PNB at [facility] History of vaginal hysterectomy History of wisdom tooth extraction Hx of colonoscopy Hx of reconstruction of anterior cruciate ligament tear left knee Postoperative nausea S/P surgical manipulation of knee joint LEFT Family History Grandmother (Maternal) Alcoholism Father Alzheimer disease Grandfather (Maternal) Diabetes Bipolar disorder Pure hypercholesterolemia Hypertension Family history of diabetes mellitus Mother Diabetes Depression Pure hypercholesterolemia Breast cancer Cancer liver and ? pancreatic Hypertension Sister No problems noted. Brother No problems noted. Daughter No problems noted. Son No problems noted. Other No family history of adverse response to anesthesia Denies family history of Ovarian cancer Prostate cancer Myocardial infarction Colorectal cancer Social History Smoking Status: Never smoker Second Hand Exposure: No; Do You Dip or Chew Tobacco: No; Tobacco Cessation Education Requested by Patient: No Hx Alcohol Use: No Hx Substance Use: No Preferred Language: [place] Communication Ability: Effective Visual Impairment: No Limitations Hearing Ability: Normal Title One Kindergarten Teacher Required: No Beliefs That Will Affect Care: None marital status: Current Living Situation: Spouse current occupational status: retired Feels Safe at Home: Yes Safety Concerns: Feels Safe At This Time Childhood Exposure to Second-Hand Smoke: No Dental Care, Regularly: Yes Physical Activity Frequency: 5-6 Times per Week Physical Activity Frequency Comment: regularly Seatbelt Use: always Sunscreen Use: Yes Assistive Devices: None Review of Systems Review of Systems: All systems reviewed & are unremarkable except as noted in HPI & below Physical Exam Physical Exam: On physical examination of the left knee, she has range of motion from 10 to 90 degrees. She is no instability. There is no signs of infection. She ambulates with an antalgic gait because her left knee is flexed. PG Care Time/CCT Total # of Minutes Spent Total Time Spent with Patient: Total time spent is greater than 50% in coordination of care (as documented) at patient's floor/unit and/or counseling patient: Coding Level of Care Code None Diagnoses Arthrofibrosis of knee joint M24.669
--- NOTE | 2020-01-06 13:29 | History & Physical Bridge Note ---
Date of Service January 06, 2020 History & Physical Bridge Note I have examined the patient, reviewed the History & Physical and in the interval since the performance of the History & Physical I have noted the following changes of clinical significance: no changes noted
[~2020-01-06 13:32] MED LIST changes: -BUPIVACAINE 0.5 % 5 MG/1 ML PF 10ML VIAL ONE; -CEFAZOLIN 1000MG 1,000 MG/7.5 ML SYR IV SCH; -LR 15ML/HR IV SCH; +LR 500ML BOLUS, THEN 15ML/HR IV SCH; -ROPIVACAINE 0.5% 5 MG/ML 30 ML VIAL ONE; -ROPIVACAINE 0.5% HCL/PF 150 MG, BUPIVACAINE 0.5% MPF 30 ML, EPINEPHrine 30MG/30ML (OR U... INSTIL SCH; +ROPIVACAINE 0.5% HCL/PF 150 MG, BUPIVACAINE 0.75% MPF 20 ML, EPINEPHrine 30MG/30ML (OR ... INFIL SCH; +TRANEXAMIC ACID / 0.7% NACL 1,000 MG/100 ML BAG IV SCH; -TRANEXAMIC ACID 1,000 MG **IV Intra-op IV SCH; -TRANEXAMIC ACID 1,000 MG **IV Pre-op IV SCH; +ceFAZolin 1000MG 1,000 MG/7.5 ML SYR IV SCH
[2020-01-06] MEDS ORDERED: fentaNYL citrate 100 MCG/2 ML VIAL ONE ×2 (14:43→15:42)
[2020-01-06] MEDS ORDERED: MIDAZOLAM HCL 1 MG/ML 2ML VIAL ONE ×2 (14:43→15:42)
[2020-01-06] MEDS ORDERED: EPINEPHrine INJ 1 MG/ML AMP ONE (15:38)
[2020-01-06] MEDS ORDERED: DEXAMETHASONE SOD INJ 4 MG/ML VIAL ONE (15:38)
[2020-01-06] MEDS ORDERED: BUPIVACAINE 0.5 % 5 MG/1 ML PF 10ML VIAL ONE (15:38)
[2020-01-06] MEDS ORDERED: BUPIVACAINE/EPINEPHRINE 0.25% 1:200,000 30 ML VIAL ONE (15:41)
[2020-01-06] MEDS ORDERED: ORTHO JOINT ANESTHETIC ONE (15:50)
[2020-01-06] MEDS ORDERED: ATROPINE SULFATE 0.1 MG/ML 10ML SYR IV PRN (16:33)
[2020-01-06] MEDS ORDERED: fentaNYL citrate 100 MCG/2 ML VIAL IV PRN (16:33)
[2020-01-06] MEDS ORDERED: ePHEDrine sulfate 50 MG/ML AMP IV PRN (16:33)
[2020-01-06] MEDS ORDERED: ONDANSETRON INJ 2 MG/ML 2 ML VIAL IV PRN ×2 (16:33→18:54)
[2020-01-06] MEDS ORDERED: PROPOFOL IV EMULSION 10 MG/ML 20 ML VIAL IV ONE (17:00)
[2020-01-06] MEDS ORDERED: ePHEDrine sulfate 50 MG/ML SYR ONE (17:00)
[2020-01-06] MEDS ORDERED: LIDOCAINE HCL 2% 2 ML VIAL/AMP(20MG/ML) INFIL ONE (17:00)
[2020-01-06] MEDS ORDERED: PHENYLEPHRINE HCL 10 MG/ML VIAL ONE (17:00)
[2020-01-06] MEDS ORDERED: ONDANSETRON INJ 2 MG/ML 2 ML VIAL ONE (17:00)
--- NOTE | 2020-01-06 17:08 | Operative Report ---
PG Post Operative Report Pre & Post Diagnosis Operation Date: 01/06/20 07:00 Pre-Op Diagnosis: Postoperative Arthrofibrosis of Knee Joint Post-Op Diagnosis: Postoperative Arthrofibrosis of Knee Joint I identified the patient and participated in the time-out.: Yes Procedure Operation Date: 01/06/20 07:00 Actual Procedures p left knee open debridement with polyethylene exchange (Left) - Semaj Muro DO Surgeon Semaj Muro DO Research Program Manager Semaj Ennis PAC Estimated Blood Loss 20 Findings Consistent with Post-Op Diagnosis Specimens None Complications none Disposition Disposition: Recovery Room Indications Aleksandra is a pleasant 54-year-old female who is been dealing with a year-long history of left knee pain. She is very active. She has a history of multiple knee procedures in the past. I did a left knee arthroscopy on her in June. On arthroscopy I saw advanced osteoarthritis of the knee. She did not improve with the arthroscopy. She continued to limp on her knee. She then underwent a left total knee arthroplasty in September 2019. Postoperatively she was having trouble with motion. I did a manipulation on her 6 weeks after the procedure. I was able to get fairly good extension but still little tight with extension. She still struggled with range of motion of her knee. After discussions in the office, we elected to proceed with an open debridement with scar tissue removal and downsizing of the polyethylene insert. Description of Procedure On January 06, 2020 Aleksandra arrived at [facility] for the above procedure. She was seen in the preoperative holding area and the operative extremity was identified and signed. She was given a preoperative antibiotic. She was taken back the operating room and laid on the table in the supine position. She was put under basic sedation. The left knee was then prepped and draped in sterile fashion. A timeout was done. The patient and the operative extremity was properly identified. Before incision I did a gentle manipulation under anesthesia. I was able to get her knee to range of motion from about 10 to 110 degrees. I still had trouble with full extension and excessive flexion. The old incision was opened back up. Dissection was taken down through the fascia. Soft tissue planes were mobilized. A subvastus arthrotomy was used once again. Time was spent cleaning scar tissue out of the medial lateral gutters as well as removing all adhesions beneath the quadriceps muscle belly. All scar tissue was removed from around the patella as well. All soft tissue planes were mobilized. The 13 mm polyethylene insert was then removed. Time was then spent releasing scarring in the posterior capsule. I made sure the PCL was completely released. A 10 mm medial congruent polyethylene trial was then used. I brought the knee through a full range of motion. I was able to get range of motion from slight hyperextension to about 140 degrees of flexion. The tourniquet was then deflated. Hemostasis was obtained. The final size 10 polyethylene medial congruent implant was placed. The knee was brought through a full range of motion. The surrounding soft tissues were injected with 100 cc of an orthopedic pain control cocktail. A 3-minute Betadine lavage was then done. The arthrotomy was then closed with #1 Vicryl suture. The skin was then closed with 2-0 Vicryl, 3 oh VueLock suture, and tony. She was then placed in a soft dressing. She was then transferred to a hospital bed and taken to the postanesthesia care unit in stable condition. She tolerated the procedure well. Semaj Ennis PA-C, was present for the entire procedure. He was critical for patient positioning, prepping, draping, retraction exposure, wound closure and application of sterile dressing. I attest to the content of the Intraoperative Record and any orders documented therein. Any exceptions are noted below.
--- NOTE | 2020-01-06 17:33 | Anesthesiology Progress Note ---
Date of Service January 06, 2020 Anesthesia Post Procedure Vital Signs Vital Signs: Temp Pulse Resp BP Pulse Ox 01/06/20 14:19 36.6 C 81 18 135/72 100 Transfer of Care Handoff Completed per policy Notes Mental Status: alert / awake / arousable Patient Amnestic to Procedure: Yes Nausea / Vomiting: adequately controlled Pain: adequately controlled Airway Patency, RR, SpO2: stable & adequate BP & HR: stable & adequate Hydration State: stable & adequate Neuraxial Anesthesia: was administered and sensory block is resolving Anesthetic Complications: no major complications apparent
[2020-01-06] MEDS ORDERED: METOCLOPRAMIDE HCL INJ 5 MG/ML 2 ML VIAL IV PRN (18:54)
[2020-01-06] MEDS ORDERED: HYDROmorphone INJ 0.5 MG/0.5 ML SYR IV PRN (18:54)
[2020-01-06] MEDS ORDERED: MAGNESIUM HYDROXIDE SUSP 30 ML UDC PO PRN (18:54)
[2020-01-06] MEDS ORDERED: INFLUENZA VIRUS QUAD VACCINE 0.5 ML SYR IM ONE (18:54)
[2020-01-06] MEDS ORDERED: INFLUENZA ADMINISTRATION CHARGE ONE (18:54)
[2020-01-06] MEDS ORDERED: NALOXONE HCL 0.4 MG/1 ML VIAL/CARP IV PRN (18:54)
[2020-01-06] MEDS ORDERED: bisacodyL 10 MG SUPP PR PRN (18:54)
[2020-01-06] MEDS: SODIUM CHLORIDE 0.9% 1000ML 1,000 ML IV SCH (19:00)
--- NOTE | 2020-01-06 20:27 | XRay Report ---
TWO VIEWS LEFT KNEE CLINICAL HISTORY: Postoperative examination. FINDINGS: AP and crosstable lateral portable views of the left knee are obtained. A left knee arthrop lasty is in near anatomic alignment. There has been undersurface remodeling of the patella. Postopera tive changes also seen along the lateral tibial plateau. No acute fracture is seen. There are expecte d postoperative changes around the knee including skin clips soft tissue edema, and subcutaneous gas. IMPRESSION: Expected postoperative changes status post left knee arthroplasty. No acute fracture is s een. ACT 112: Negative or not required by law. Electronically signed by: Mayank Lang M.D. 01/06/2020 8:26 PM
[2020-01-06] MEDS ORDERED: SENNA 8.6 MG TAB PO SCH (21:00)
[2020-01-06] MEDS: KETOROLAC TROMETHAMINE 15 MG/ML VIAL IV SCH (22:05)
[2020-01-06] MEDS: ACETAMINOPHEN 500 MG TAB PO SCH (22:05)
[2020-01-06] MEDS: ASPIRIN 81 MG ECTAB PO SCH (22:06)
[2020-01-06] MEDS: DOCUSATE SODIUM 100 MG CAP PO SCH (22:06)
[2020-01-06] MEDS: oxyCODONE HCL IR 5 MG TAB (IMMEDIATE RELEASE) PO PRN (22:06)
[2020-01-06] MEDS: ceFAZolin 2000MG 2,000 MG/15 ML SYR IV SCH (23:49)
[2020-01-07] MEDS: KETOROLAC TROMETHAMINE 15 MG/ML VIAL IV SCH ×3 (01:46→13:59)
[2020-01-07] MEDS: ACETAMINOPHEN 500 MG TAB PO SCH ×2 (04:57→14:00)
[2020-01-07] MEDS: SODIUM CHLORIDE 0.9% 1000ML 1,000 ML IV SCH (05:27)
[2020-01-07] MEDS: ASPIRIN 81 MG ECTAB PO SCH (07:30)
[2020-01-07] MEDS: DOCUSATE SODIUM 100 MG CAP PO SCH (07:30)
[2020-01-07] MEDS: ceFAZolin 2000MG 2,000 MG/15 ML SYR IV SCH (07:30)
[2020-01-07] MEDS: oxyCODONE HCL IR 5 MG TAB (IMMEDIATE RELEASE) PO PRN ×2 (07:30→12:54)
[2020-01-07] MEDS ORDERED: dexAMETHasone 4 MG TAB PO SCH (08:00)
--- NOTE | 2020-01-07 08:08 | Orthopedic Progress Note ---
Date of Service January 07, 2020 Assessment & Plan (1) Arthrofibrosis of knee joint: Overall she is doing well. She already feels optimistic about her outcome. She will be seen by physical therapy today for ambulation and range of motion exercises. She is on aspirin for DVT prophylaxis. She can be discharged home later today. She will follow-up with orthopedics in 2 weeks. Present on Admission?: Yes Admission and Anticipated Discharge Date Admission Date: January 06, 2020 Shahzad Hilton was seen and examined at bedside this morning. Overall she is doing very well. She not any much pain in the left knee. The nerve block is still in effect some. She can contract her quad better than she could before the surgery. She seems more optimistic. She has no complaints. Physical Exam Physical Exam: On physical examination of the left knee, her left leg is out in full extension. She does not have dorsiflexion of her left ankle yet. There is no drainage on the dressing. Results & Data ([facility]) Vital Signs (Past 12 Hours) Vital Signs Temp Pulse Resp BP Pulse Ox 01/07/20 07:35 36.6 C 75 18 101/68 99 01/07/20 02:46 36.4 C L 82 16 99/67 L 93 01/06/20 23:47 36.6 C 78 12 96/61 L 96 01/06/20 23:33 36.6 C 85 16 98/61 L 97 01/06/20 22:00 89 14 116/76 99 01/06/20 20:33 36.3 C L 83 16 95/61 L 96 PG Care Time/CCT Total # of Minutes Spent Total Time Spent with Patient: Total time spent is greater than 50% in coordination of care (as documented) at patient's floor/unit and/or counseling patient: Coding Level of Care Code None Diagnoses Arthrofibrosis of knee joint M24.669
--- NOTE | 2020-01-07 08:10 | Discharge Summary ---
Date of Service January 07, 2020 Admission HPI Per Admitting Provider Aleksandra is a pleasant 54-year-old female who used to be a competitive gymnast. She has had multiple procedures on her left knee. About a year ago she began having more significant left knee pain. I treated her conservatively and then got an MRI of her knee. The MRI showed some chondromalacia and a displaced lateral meniscus tear. She was having trouble ambulating. After failing conservative treatment, she underwent a left knee arthroscopy in June 2019. During the arthroscopy there was more arthritis than I was expecting. Postoperatively she did not do well. She struggled to regain her range of motion. She was having constant pain and constantly limping on the left knee. After discussions in the office, she elected to proceed with a left total knee arthroplasty in September 2019. Unfortunately she struggled to regain her range of motion after that as well. She underwent a manipulation under anesthesia 6 weeks after the knee replacement. I was able to get about 130 degrees of flexion but I was unable to get full extension during the manipulation. She continue to work on it over the last 6 weeks but her range of motion is not improving. Her range of motion was about 10 to 90 degrees. She is having difficulty living with the knee the way it is. I did an infection work-up and all infection markers were negative. After discussions in the office, I think it is reasonable to proceed with a scar tissue removal and a downsize of the polyethylene implant. She understands the risks, benefits, and alternatives to the procedure and has elected to proceed. Principal Diagnosis Arthrofibrosis of the left knee Discharge Data Allergies Allergy/AdvReac Type Severity Reaction Status Date / Time Sulfa (Sulfonamide Allergy Mild RASH Verified 01/06/20 14:18 Antibiotics) Consultations 01/06/20 18:54 Consult Case Management - Discharge Planning Routine Procedures Performed Operation Date: 01/06/20 07:00 Actual Procedures p Left Knee Open Debridement With Polyethylene Exchange (Left) - Semaj Muro DO Ordered Studies 01/06/20 05:00 US - OR guided needle placemen Routine Hospital Course (1) Arthrofibrosis of knee joint: On January 06, 2020 Aleksandra arrived at [facility] and underwent a revision left knee without complication. Postoperatively she was started on aspirin for DVT prophylaxis and transferred to the general orthopedic floors. Her hospital course was uneventful. On postop day #1 she was able to participate well with physical therapy doing ambulation and range of motion exercises. She was then discharged home. She will follow-up with orthopedics in 2 weeks. Total Time Total Time Spent Total Time Spent (In Minutes): 20 Discharge Plan Discharge Items Patient Disposition: Home - Home Health Services Reason For Visit: Painful, Stiff Left Total Knee Arthroplasty Discharge Diagnosis: Debridement of left knee with polyethylene exchange Activity: As commented below Non-emergency contact: Surgeon Call non-emergency contact if: your wound has increased redness and your wound has increased drainage Follow-up/Referrals: Emma Peng MD [Primary Care Provider] - Diet: Regular Addtl Attending Provider Instructions: Activity and Therapy Recommendations: * If you are using [facility] then therapy will be provided at your home until they feel you have accomplished all of your goals. * If you are using [facility] then Physical Therapy will be provided until they feel you are ready to start Outpatient Physical Therapy. * If you are not using home therapy then Outpatient Physical Therapy should start about 3-5 days from your day of surgery. Therapy will last about 6-10 weeks * It is important not to put a pillow under your knee when you are relaxing or sleeping. It is just as important to make sure you are getting your knee perfectly straight as it is to regain your knee bend. * You were shown a series of exercises in the hospital. Do these exercises three times each day including the exercises you were shown in physical therapy. * Get up and walk several times each day. For the first four weeks, try not to stand or walk for more than one hour at a time. If you do stand or walk for more than one hour, you will not hurt anything, but your leg will likely swell. * As you feel comfortable, you may change from the walker or crutches to a cane and then to independent walking. Medications: * Narcotic You will likely be sent home from the hospital with a prescription for the narcotic pain medication that worked best throughout your stay. * Aspirin Most patients will be required to take Aspirin 81mg twice a day for 6 weeks after surgery. This is obtained [id number] and a prescription is not necessary. * Other medications may be prescribed for specific circumstances. If you have any questions, please call the office at . * Resume previous home medications unless otherwise instructed TEDs/Elastic Stockings: The white elastic stockings help limit swelling and prevent blood clots from forming in your legs.~ The more you wear them, the more they work. Wear them for six weeks. Dressing Care: Leave the Silverlon dressing in place for 7 days. After 7 days you may remove the dressing. If the incision is not draining then you may leave the tony open to air. If there is a little bit of drainage or if the tony are getting stuck on your clothing then cover the incision with a dry dressing. The tony will be removed at your 2 week follow-up appointment. Showering: You may shower with the Silverlon dressing in place. Do not let the shower spray hit the dressing directly. Pat the Silverlon dressing dry. If the dressing becomes wet underneath, then simply remove the dressing. Keep the incision dry until you are 7 days out from the day of surgery. After 7 days you may remove the Silverlon dressing and shower with the tony exposed. Let soapy water run over the tony and pat them dry. Do not scrub or soak the incision. Things To Watch For: * Drainage from the incision site that occurs more than one week after your surgery. * Increased redness at the incision site. * Fever above 102 degrees Fahrenheit. * Unusual chest pain or shortness of breath. * Call [facility] at with any of the above problems Follow-Up Visit: Follow-up with Dr. Muro's PA (Semaj Ennis) 2-3 weeks after your day of surgery. He will remove your tony and answer any questions. If you have any additional questions or concerns, Dr Muro is usually in the office at the same time and will be available An appointment was probably scheduled when you signed-up for surgery in the office. If you have any questions call Office Instructions: More detailed instructions as well as Frequently Asked Questions were provided in a folder by our office when you signed-up for surgery. Please review these instructions when you get home. If you have any further questions or concerns, please feel free to call the office at [phone] Pending Studies at Discharge: No Stand-Alone Forms: [facility] [employer] Health, Smoking Cessation Medications and DC Order Prescriptions: New oxycodone 5 mg Tablet 5 mg PO Q4H PRN (Reason: pain) Qty: 30 RF: 0 aspirin 81 mg Tablet,Delayed Release (Dr/Ec) 81 mg PO BID 42 Days Qty: 0 RF: 0 No Action No Known Home Medications RF: 0 Discharge Orders: Discharge Order (Routine); Ordered 01/07/20 Ordered By: Semaj Muro Admission Data Admit Date/Time: 01/06/20 17:26 Attending Provider: Semaj Muro Admit Provider: Semaj Muro Primary Care Provider: Emma Peng Coding Level of Care Code D/C Day Management <30 mins Diagnoses Arthrofibrosis of knee joint M24.669
[2020-01-07] MEDS ORDERED: MULTIVITAMIN TAB PO SCH (09:00)
== END 2020-01-07 14:34 | disposition home health service (06) ==
LOC: ASU 13:32 → 3E 13:32
DX: Y83.1 Surgical operation with implant of artificial internal device as the cause of abnormal reaction of the patient, or of later complication, without mention of misadventure at the time of the procedure; M24.662 Ankylosis, left knee; T84.84XA Pain due to internal orthopedic prosthetic devices, implants and grafts, initial encounter; Z88.2 Allergy status to sulfonamides; M48.00 Spinal stenosis, site unspecified